=== PATIENT | female | born 1930 | race Caucasian/White ===

== ENCOUNTER 2018-08-03 05:44 | Day surgery (SDC) | payer MEDICARE, BC ==
[~2018-08-03] VITALS: Ht 172.7 cm; Wt 49.5 kg
--- NOTE | ~2018-08-03 | OP ---
PATIENT NAME: KIRSTEN DUNAWAY MEDICAL RECORD: [id number] :34 LOCATION:[facility] ADMISSION DATE: SURGEON: STEPHEN PEÑA DO DATE OF OPERATION: 08/03/2018 PROCEDURE: EGD with biopsies. INDICATIONS FOR PROCEDURE: Decreased appetite, nausea and vomiting, abnormal weight loss. SCOPE: Olympus video gastroscope. MEDICATIONS: Propofol 80 mg IV per anesthesia. ESTIMATED BLOOD LOSS: Minimal. COMPLICATIONS: None. FINDINGS: Informed consent was given. The patient was made comfortable with the above medication. After reaching an adequate level of sedation by slow IV push, the patient was placed on her left side. The endoscope was advanced under direct visualization through the mouth to the second portion of the duodenum. The upper, middle, and lower thirds of the esophagus appeared normal. The GE junction showed a normal-appearing Z-line without evidence of reflux esophagitis. The endoscope was advanced beyond the GE junction into the stomach and retroflexed to view the cardia, where a small sliding hiatal hernia was present. The entire mucosa of the stomach and small intestine down to the second portion appeared normal. Random cold forceps biopsies were taken from the duodenum and the antrum and incisura of the stomach. These will be submitted for histopathology. The endoscope was withdrawn from the patient. The patient tolerated the procedure well, and there were no complications. IMPRESSION: 1. Small sliding hiatal hernia. 2. Otherwise, normal upper endoscopy. PLAN AND RECOMMENDATIONS: 1. Discharge home when recovery parameters are met. 2. Follow up biopsy specimen results. 3. Continue current diet and medications. 4. We will proceed with a gastric emptying study and right upper quadrant ultrasound regarding the patient's symptoms of early satiety and nausea. 5. Follow up in GI clinic in approximately 3 weeks to discuss symptoms and further workup if necessary. TRANSINT:[id number] Voice Confirmation ID: [id number] DOCUMENT ID: [id number] OPERATIVE REPORT [id number] KIRSTEN DUNAWAY STEPHEN PEÑA DO CC: [id number] DICTATION DATE: 08/03/18757 DEVELOPING MACHINE TENDER: 08/03/18818 [facility] [address] [place] [address]
[2018-08-03 06:33] LABS: BASOPHILS 0.6 % (0-2); EOSINOPHILS 2.2 % (0-7); HEMATOCRIT 40.8 % (36.0-48.0); HEMOGLOBIN 13.6 g/dL (12-16); IMMATURE GRANULOCYTES 0.2 % (0-5); LYMPHOCYTES 30.1 % (15-50); MCH 30.2 pg (26.0-34.0); MCHC 33.3 g/dL (31.0-37.0); MCV 90.5 fL (80.0-100.0); NEUTROPHILS 54.9 % (40-80); PLATELET COUNT 208 10x3/uL (130-400); RBC 4.51 10x6/uL (4.00-5.40); RDW 13.1 % (11.5-14.5); WBC 5.1 10x3/uL (4.8-10.8)
[2018-08-03 06:38] LABS: INR 1.22 (0.85-1.17); PROTIME 14.9 SECONDS (11.6-15.0)
[2018-08-03 06:44] LABS: ANION GAP 7.6 mmol/L (8-16); CALCIUM 8.8 mg/dL (8.5-10.1); CARBON DIOXIDE 31.5 mmol/L (21.0-32.0); CREATININE - SERUM 0.8 mg/dL (0.6-1.3); POTASSIUM - SERUM 3.1 mmol/L (3.5-5.1)
[2018-08-03] MEDS ORDERED: DONEPEZIL HCL10 MG PO (06:47)
[2018-08-03] MEDS ORDERED: MYRBETRIQ50 MG PO (06:47)
[2018-08-03] MEDS ORDERED: PEPCID AC20 MG PO (06:48)
[2018-08-03] MEDS ORDERED: FLORINEF 0.1 M0.1 MG PO (06:49)
[2018-08-03] MEDS ORDERED: CALCIUM 600 +1 EAC3 PO (06:49)
[2018-08-03] MEDS ORDERED: MULTI-DAY VITAM1 TAB PO (06:50)
[2018-08-03 06:57] LABS: APTT 27.2 SECONDS (22.8-39.4)
[2018-08-03 06:59] VITALS: BP 166/73; Ht 172.7 cm; Wt 49.5 kg
== END 2018-08-03 08:50 | disposition home or self-care (01) ==
LOC: D.OPS 05:44
PROVIDERS: Anesthesiology; ATTEND Internal Medicine Gastroenterology
DX: K44.9 Diaphragmatic hernia without obstruction or gangrene (principal); Z01.812 Encounter for preprocedural laboratory examination

== ENCOUNTER → 2018-08-12 12:38 | Outpatient (CLI) | payer MEDICARE, BC ==
[2018-08-03 06:59] VITALS: BMI 16.6
[~2018-08-12 12:38] MED LIST: CALCIUM 600 +1 EAC3 PO; DONEPEZIL HCL10 MG PO; FLORINEF 0.1 M0.1 MG PO; MULTI-DAY VITAM1 TAB PO; MYRBETRIQ50 MG PO; PEPCID AC20 MG PO
== END | disposition home or self-care (01) ==
LOC: D.US 08:00
PROVIDERS: ATTEND Internal Medicine Gastroenterology
DX: R68.81 Early satiety (principal); R11.0 Nausea; R63.0 Anorexia